=== PATIENT | male | born 1970 | race Caucasian/White ===

== ENCOUNTER 2020-08-03 09:49 | Emergency (ER) | payer BC, SELFPAY ==
--- NOTE | ~2020-08-03 | CT_ITS ---
EXAMINATION: CT facial bones w con DATE: 08/03/2020 11:42 INDICATION: Left facial swelling. TECHNIQUE: Computed tomography (CT) of the facial bones and maxillofacial region was performed with 7 5 mL Omnipaque 350 intravenous contrast. Automated exposure control and iterative reconstruction tech [employer] were employed. The dose-length product was 275.12 mGy-cm. COMPARISON: None. FINDINGS: There is soft tissue swelling of left cheek and infraorbital region. The orbits are normal. There is mild mucosal thickening in the ethmoid and maxillary sinuses. There are carious lesions of teeth 11 and 12 with periapical lucencies and breech of the lingual cortex of the alveolar process. T ooth 29 demonstrates a carious lesion and periapical lucencies with breech of the lingual cortex of t he alveolar process. IMPRESSION: 1. Carious lesions of teeth 11, 12, and 29 with periapical lucencies and breech of the lingual cortex . 2. Left face cellulitis. No soft tissue abscess. Reviewed, dictated and finalized at location A. [employer] IMPRESSION: 1. Carious lesions of teeth 11, 12, and 29 with periapical lucencies and breech of the lingual cortex. 2. Left face cellulitis. No soft tissue abscess.
[2020-08-03 09:52] VITALS: BP 134/99; PULSE 84; RESP 18; TEMP 36.2; O2SAT 99
--- NOTE | 2020-08-03 11:03 | ED.DENTAL ---
HPI - Dental/Oral General Chief complaint: Dental/Oral <KENYA Roa Last Filed: 08/03/20 13:41> Stated complaint: dental/facial swelling <KENYA Roa Last Filed: 08/03/20 13:41> Time Seen by Provider: 08/03/20 10:15 <KENYA Roa Last Filed: 08/03/20 13:41> Source: patient <KENYA Roa Last Filed: 08/03/20 13:41> Mode of arrival: ambulatory <KENYA Roa Last Filed: 08/03/20 13:41> Limitations: no limitations <KENYA Roa Last Filed: 08/03/20 13:41> History of Present Illness HPI Narrative: This is a 49-year-old male that presents to the emergency department for toothache x3 days. Reports redness and swelling of the left side of his face. Reports he was started on doxycycline for possible sinus infection. Denies fever. <Zulema Cohen PA-C - Last Filed: 08/03/20 13:41> MD Complaint: tooth pain <KENYA Roa Last Filed: 08/03/20 13:41> Location: Tooth # (12) <KENYA Roa Last Filed: 08/03/20 13:41> Related Data Allergies/adverse reactions: Allergies Allergy/AdvReac Type Severity Reaction Status Date / Time No Known Allergies Allergy Verified 08/03/20 09:56 <KENYA Roa Last Filed: 08/03/20 13:41> Review of Systems Review of Systems: Narrative: CONSTITUTIONAL: Denies fever EYES: Denies visual changes, redness, or discharge. ENT: Reports dentalgia <KENYA Roa Last Filed: 08/03/20 13:41> All systems reviewed & are unremarkable except as noted in HPI and below <KENYA Roa Last Filed: 08/03/20 13:41> [facility] Past Medical History Medical History: Medical History (Updated 08/03/20 @ 13:39 by Zulema Cohen PA-C) History of ADHD <Zulema Cohen PA-C - Last Filed: 08/03/20 13:41> Surgical History Surgical History: Surgical History (Updated 08/03/20 @ 11:06 by Zulema Cohen PA-C) History of tonsillectomy History of vasectomy <Zulema Cohen PA-C - Last Filed: 08/03/20 13:41> Social History Social History: Social History Gender identity (if verbalized by the patient): Male <Zulema Cohen PA-C - Last Filed: 08/03/20 13:41> Exam Narrative: Exam Narrative: GENERAL: Well-appearing, well-nourished, and in no acute distress. HEAD: Normocephalic, atraumatic. Mild-moderate left sided facial swelling and redness around the lower eyelid and cheek EYES: PERRLA and EOMI. ENT: Mucous membranes moist. Oropharynx without tonsillar hypertrophy exudate or other lesions. Bilateral TMs pearly madrigal non-bulging. Tooth number 12 cracked, tender to palpation. No surrounding edema or fluctuance to suggest abscess NECK: Supple. No adenopathy or masses. CHEST: Clear to auscultation. No respiratory distress. No wheezes rales or rhonchi HEART: Regular rate and rhythm. No murmur heard. Normal peripheral pulses. EXTREMITIES: Normal range of motion. No edema. SKIN: Warm, dry, no rash. NEURO: No focal deficits. Alert and oriented x3. PSYCH: Normal mood and affect <Zulema Cohen PA-C - Last Filed: 08/03/20 13:41> Course Vital Signs Vital signs: Vital Signs Temperature 97.2 F L 08/03/20 09:52 Pulse Rate 84 08/03/20 09:52 Respiratory Rate 18 08/03/20 09:52 Blood Pressure 134/99 H 08/03/20 09:52 Pulse Oximetry 99 08/03/20 09:52 Temperature 97.2 F L 08/03/20 09:52 Pulse Rate 84 08/03/20 09:52 Respiratory Rate 18 08/03/20 09:52 Blood Pressure 134/99 H 08/03/20 09:52 Pulse Oximetry 99 08/03/20 09:52 <Zulema Cohen PA-C - Last Filed: 08/03/20 13:41> Vital Signs Temperature 97.2 F L 08/03/20 09:52 Pulse Rate 84 08/03/20 09:52 Respiratory Rate 18 08/03/20 09:52 Blood Pressure 134/99 H 08/03/20 09:52 Pulse Oximetry 99 08/03/20 09:52 Temperature 97.2 F L 08/03/20 09:52 Pulse Rate 84 08/03/20 09:52 Respiratory Rate 18 08/03/20 09:52
[2020-08-03 11:22] LABS: Basophils Percent Auto 0.3 % (0.2-1.2); Eosinophils Absolute Auto 0.2 K/mm3 (0-0.3); Eosinophils Percent Auto 2.3 % (0-4.4); Hematocrit 45.6 % (42.0-52.0); Hemoglobin 15.5 g/dL (14.0-18.0); Immature Granulocyte Absolute 0.02 K/mm3 (0.00-0.031); Immature Granulocyte Percent A 0.3 % (0-0.5); Lymphocytes Absolute Auto 1.24 K/mm3 (0.9-3.2); Mean Corpuscular Volume 91.2 fl (80-100); Mean Platelet Volume 9.1 fl (7.4-10.4); Monocytes Absolute Auto 0.5 K/mm3 (0.1-0.6); Monocytes Percent Auto 8.3 % (2.6-8.5); Neutrophils Absolute Auto 4.5 K/mm3 (1.3-6.7); Neutrophils Percent Auto 69.8 % (45.5-73.1); Platelet Count Result 216 k/mm3 (150-375); White Blood Count 6.5 K/mm3 (4.5-10.0)
[2020-08-03 11:39] LABS: Estimated CRCL calculation 91 ml/min; Estimated Glomerular Filt Rate > 60
[2020-08-03 11:49] LABS: Anion Gap 4 mmol/L (8-16); Blood Urea Nitrogen 11 mg/dL (9-20); Calcium 8.8 mg/dL (8.4-10.2); Carbon Dioxide 30 mmol/L (22-30); Chloride 103 mmol/L (98-107); Erythrocyte Sedimentation Rate 21 mm/hr (0-20); Estimated CRCL calculation 91 ml/min; Estimated Glomerular Filt Rate > 60; Glucose 114 mg/dL (75-110); Potassium 4.2 mmol/L (3.4-5.0); Sodium 137 mmol/L (137-145)
[2020-08-03 12:04] LABS: CRP 1.8 mg/dL (<1.0)
[2020-08-03] MEDS: AMPICILLIN SULB 3 GM/NS 100 ML 3 GM/100 ML VIAL IVPB (12:20)
== END 2020-08-03 13:58 | disposition home or self-care (01) ==
PROVIDERS: Physician Assistant; Emergency Provider General Practice; PCP Internal Medicine
DX: K08.89 Other specified disorders of teeth and supporting structures (principal); L03.211 Cellulitis of face
CPT/HCPCS: 36415; 70487; 80048; 85025; 85652; 86140; 96365; 99284; J0295; Q9967

== ENCOUNTER → 2021-07-25 01:53 | Outpatient (CLI) | payer BC, SELFPAY ==
[2021-07-25 21:12] LABS: SARS-CoV-2 RNA PCR Negative
== END ==
PROVIDERS: PCP Internal Medicine; Visit Provider Internal Medicine
DX: R51.9 Headache, unspecified (principal); R43.0 Anosmia; R19.7 Diarrhea, unspecified; Z20.822 Contact with and (suspected) exposure to COVID-19
CPT/HCPCS: C9803; U0003; U0005

== ENCOUNTER → 2021-08-28 02:16 | Outpatient (CLI) | payer BC, SELFPAY ==
[2021-08-28 12:39] LABS: SARS-CoV-2 RNA PCR Negative
== END ==
PROVIDERS: PCP Internal Medicine; Visit Provider Internal Medicine
DX: R09.89 Other specified symptoms and signs involving the circulatory and respiratory systems (principal); R52 Pain, unspecified; Z20.822 Contact with and (suspected) exposure to COVID-19
CPT/HCPCS: C9803; U0003; U0005